=== PATIENT | female | born 1990 | race Caucasian/White ===

== ENCOUNTER 2018-10-23 13:50 | Emergency (ER) | payer MEDICAID ==
--- NOTE | 2018-12-06 11:05 | ED Physician Chart ---
ED Chief Complaint/HPI - Patient Information Date Seen:: 10/23/18 Time Seen:: 13:50 Chief Complaint:: pt chose to sign out AMA Allergies:: Allergies Allergy/AdvReac Type Severity Reaction Status Date / Time ibuprofen Allergy Verified 10/23/18 13:54 metoclopramide [From Reglan] Allergy Verified 10/23/18 14:16 Family Medical History - Family Member Father Ethnicity: Living Status: Still Living Hx Family Diabetes: Yes ED Septic Shock - . Is Septic Shock (SBP<90, OR Lactate>4 mmol\L) present?: No ED Reassessment (Disposition) - Reassessment Reassessment:: pt is asymptomatic upon discharge/AMA Reassessment Condition:: Improved - Diagnosis Diagnosis:: pt chose to sign out AMA - Patient Disposition Condition at Disposition:: Stable, Improved (RTER prn if concerned)
== END 2018-10-23 14:10 | disposition home or self-care (01) ==
LOC: ER 13:50
DX: M54.9 Dorsalgia, unspecified (principal); Z88.6 Allergy status to analgesic agent; Z88.8 Allergy status to other drugs, medicaments and biological substances
CPT/HCPCS: Z7502